=== PATIENT | female | born 1970 | race Caucasian/White ===

== ENCOUNTER 2016-09-09 01:55 | Emergency (ER) | payer BC ==
[2016-09-09 02:15] VITALS: BP 121/94
[2016-09-09] MEDS ORDERED: oxyCODONE TAB* 5 MG TAB PO ONE ×2 (02:28→02:39)
[2016-09-09] MEDS ORDERED: Ibuprofen TAB* 600 MG PO ONE (02:29)
--- NOTE | 2016-09-09 02:38 | ED ---
Katherine Lackey Claudia, scribed for Mick Nava MD on 09/09/16 at 0217 . Upper Extremity Pain - HPI Summary HPI Summary: 45 year old female presents to the ED with burning/pain to her right hand. Pt notes this is the 4th incident since April. She notes that her RA Rx is not helping alleviate her pain. Pt notes that it is causing her limited mobility. Pt states no alleviating or aggravating pain. Pt notes that the pain originates in the right shoulder and moves down her arm into her hand. Pt notes that it can usually get intense on the left side as well but not at the same time. 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 8pm she took hydrocodone and too ibuprofen and tried to g to sleep around 9 and she got up since. Pt notes this pain feels worse than her usual RA Sx. PMHx of RA - History of Current Complaint Chief Complaint: EDGeneral Stated Complaint: RIGHT HAND PAIN FROM ELBOW TO FINGERS Time Seen by Provider: 09/09/16 02:10 Hx Obtained From: Patient Hx Last Menstrual Period: mar 2014 Onset/Duration: Still Present, Worse Since - tonight Timing: Constant Character: Burning Aggravating Factor(s): Nothing Alleviating Factor(s): Nothing - Allergies/Home Medications Allergies/Adverse Reactions: Allergies Allergy/AdvReac Type Severity Reaction Status Date / Time Carbamazepine [From Tegretol] Allergy Severe See Comment Verified 05/10/14 10:10 Sucralfate [From Carafate] AdvReac Unknown Verified 09/09/16 02:07 Reaction Details PMH/Surg Hx/FS Hx/Imm Hx Previously Healthy: Yes Endocrine/Hematology History: Denies: Hx Diabetes Cardiovascular History: Reports: Hx Angina, Hx Hypercholesterolemia, Other Cardiovascular Problems/Disorders - heart murmur during Denies: Hx Coronary Artery Disease, Hx Hypertension, Hx Myocardial Infarction , Hx Valvular Heart Disease Respiratory History: Denies: Hx Asthma, Hx Chronic Obstructive Pulmonary Disease (COPD) GI History: Reports: Hx Gastroesophageal Reflux Disease, Hx Irritable Bowel Musculoskeletal History: Reports: Hx Rheumatoid Arthritis, Hx Gout Neurological History: Reports: Other Neuro Impairments/Disorders - neurogenic bladder, RA - Surgical History Surgery Procedure, Year, and Place: uterine dilitation; wisdom teeth Infectious Disease History: No Infectious Disease History: 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 Denies: Hx Clostridium Difficile, Hx Human Immunodeficiency Virus (HIV), Hx of Known/Suspected MRSA, Hx Shingles, Hx Tuberculosis, Hx Known/Suspected VRE, Hx Known/Suspected VRSA, History Other Infectious Disease, Traveled Outside the [place] in Last 30 Days - Family History Known Family History: Positive: Cardiac Disease - CAD - Social History Occupation: Employed Full-time Lives: With Family Alcohol Use: Occasionally Alcohol Amount: weekly during holidays Substance Use Type: Reports: None Smoking Status (MU): Light Every Day Tobacco Smoker Amount Used/How Often: 5-6 daily Review of Systems Constitutional: Negative Negative: Fever Eyes: Negative ENT: Negative Cardiovascular: Negative Respiratory: Negative Gastrointestinal: Negative Genitourinary: Negative Positive: Other - right forearm pain into her right hand- burning sensation Skin: Negative Neurological: Negative Psychological: Normal All Other Systems Reviewed And Are Negative: Yes Physical Exam Triage Information Reviewed: Yes Vital Signs On Initial Exam: Initial Vitals Temp Pulse Resp BP Pulse Ox 97.1 F 78 18 121/94 98 09/09/16 02:03 09/09/16 02:03 09/09/16 02:03 09/09/16 02:03 09/09/16 02:03 Vital Signs Reviewed: Yes Appearance: Positive: Well-Appearing. Negative: No Pain Distress - mild pain distress Skin: Positive: Warm, Skin Color Reflects Adequate Perfusion, Dry Head/Face: Positive: Normal Head/Face Inspection Eyes: Positive: EOMI, SURJIT ENT: Positive: Normal ENT inspection Neck: Positive: Supple, Nontender Respiratory/Lung Sounds: Positive: Clear to Auscultation, Breath Sounds Present Cardiovascular: Positive: RRR Abdomen Description: Positive: Nontender, Soft Musculoskeletal: Positive: Normal, Strength/ROM Intact, Other - positive Tinels good cap refill, some swelling over the dorsum of the wrist but no forearm swelling- no pain tenderness with palpation of the upper arm. pain with wrist flexion and extention and phalynx flexion and extention. good ROM of the arm Neurological: Positive: Normal, Sensory/Motor Intact, Alert, Oriented to Person Place, Time Psychiatric: Positive: Normal, Affect/Mood Appropriate Diagnostics - Vital Signs Vital Signs Temp Pulse Resp BP Pulse Ox 09/09/16 02:03 97.1 F 78 18 121/94 98 - Laboratory Lab Statement: Any lab studies that have been ordered have been reviewed, and results considered in the medical decision making process. Course/Dx - Course Course Of Treatment: NO CRITICAL CARE TIME Assessment/Plan: RT COCK UP SLPINT, CONTINUE NSAIDS, RX OXYCODONE, F/U PMD, DISCHARGE HOME STABLE. - Diagnoses Provider Diagnoses: Carpal tunnel syndrome Discharge - Discharge Plan Condition: Stable Disposition: HOME Prescriptions: oxyCODONE TAB* [Roxycodone TAB 5 mg*] 5 mg PO Q4H PRN #20 tab MDD 6 PRN Reason: Pain Referrals: Polo Bhatt MD [Primary Care Provider] - Additional Instructions: FOLLOW UP WITH YOUR DOCTOR FOR YOU CARPAL TUNNEL SYNDROME. RETURN TO THE EMERGENCY DEPARTMENT FOR ANY WORSENING OF YOUR CONDITION OR QUESTIONS OR CONCERNS. The documentation as recorded by the Katherine ring Claudia accurately reflects the service I personally performed and the decisions made by me, Mick Nava MD.
== END 2016-09-09 03:04 | disposition home or self-care (01) ==
LOC: ED 01:55
DX: G56.00 Carpal tunnel syndrome, unspecified upper limb (principal); M79.631 Pain in right forearm; F17.210 Nicotine dependence, cigarettes, uncomplicated
CPT/HCPCS: 99282; A9270-GY

== ENCOUNTER 2016-11-26 06:43 | Emergency (ER) | payer BC ==
[2016-11-26] MEDS ORDERED: NS 0.9% 1000 ML* 1,000 ML IV ONE (07:39)
[2016-11-26] MEDS ORDERED: Ketorolac INJ* 30 MG/ML 1 ML VIAL IV PUSH ONE (07:40)
[2016-11-26 08:28] LABS: Hematocrit 41 % (35-47); Hemoglobin 13.8 g/dl (12.0-16.0); Mean Corpuscular HGB Conc 34 g/dl (31-36); Mean Corpuscular Hemoglobin 29 pg (27-31); Mean Corpuscular Volume 85 fL (80-97); Mean Platelet Volume 7 um3 (7.4-10.4); Red Blood Count 4.79 10^6/ul (4.0-5.4); Red Cell Distribution Width 15 % (10.5-15); White Blood Count 9.7 10^3/ul (3.5-10.8)
[2016-11-26 08:42] LABS: Albumin 3.9 g/dL (3.2-5.2); BUN/Creatinine Ratio 16.9 (8-20); C Reactive Protein 13.11 mg/L (< 5.00); Calcium 9.3 mg/dL (8.6-10.3); EGFR African American 102.9 (>60); Globulin 2.9 g/dL (2-4); Potassium 3.8 mmol/L (3.5-5.0); Total Bilirubin 0.3 mg/dL (0.2-1.0); Total Protein 6.8 g/dL (6.4-8.9)
[2016-11-26 08:50] LABS: Mono Internal Control QC Line Present
[2016-11-26 08:51] LABS: Manual Entry Verification ABI0007
[2016-11-26 09:45] VITALS: BP 104/55
--- NOTE | 2016-11-26 10:10 | RAD ---
INDICATION: Body aches. COMPARISON: Comparison is made with a prior chest x-ray study from July 11, 2015. TECHNIQUE: Dual-energy PA and lateral views of the chest were obtained. FINDINGS: The heart is within normal limits in size. Mediastinal and hilar contours appear within normal limits. The lungs are clear. No pleural effusion is present. IMPRESSION: NO EVIDENCE FOR ACTIVE CARDIOPULMONARY DISEASE.
--- NOTE | 2016-11-28 19:56 | ED ---
Mara Lackey Alfonso, scribed for Dylan Alexander MD on 11/26/16 at 0745 . Complex/Multi-Sys Presentation - HPI Summary HPI Summary: This patient is a 46 year old F [place] [facility] [place] a male with a chief complaint of body aches since yesterday. Pt reports the pain is not in the joints it is the muscles. The CC is described as throbbing pain. Pt rates the pain 9/10 in severity. Symptoms aggravated by movement and alleviated by nothing. Pt reports nausea, throat pain, and lymph node swelling. Pt denies fever, cough, CP, and SOB. PMHx of rheumatoid arthritis and gout. - History Of Current Complaint Chief Complaint: EDThroatPain Time Seen by Provider: 11/26/16 07:21 Hx Obtained From: Patient Onset/Duration: Sudden Onset, Lasting Days - Yesterday, Still Present Timing: Constant Severity Currently: Severe Severity Initially: Severe Character: Throbbing Aggravating Factor(s): Movement. Alleviating Factor(s): Nothing. Associated Signs And Symptoms: Positive: Nausea, Other - Positive throat pain, and lymph node swelling. Negative: SOB, Cough, Chest Pain, Fever - Allergies/Home Medications Allergies/Adverse Reactions: Allergies Allergy/AdvReac Type Severity Reaction Status Date / Time Carbamazepine [From Tegretol] Allergy Severe See Comment Verified 05/10/14 10:10 Sucralfate [From Carafate] AdvReac Unknown Verified 09/09/16 02:07 Reaction Details PMH/Surg Hx/FS Hx/Imm Hx Endocrine/Hematology History: Denies: Hx Diabetes Cardiovascular History: Reports: Hx Angina, Hx Hypercholesterolemia, Other Cardiovascular Problems/Disorders - heart murmur during Denies: Hx Coronary Artery Disease, Hx Hypertension, Hx Myocardial Infarction , Hx Valvular Heart Disease Respiratory History: Denies: Hx Asthma, Hx Chronic Obstructive Pulmonary Disease (COPD) GI History: Reports: Hx Gastroesophageal Reflux Disease, Hx Irritable Bowel Musculoskeletal History: Reports: Hx Rheumatoid Arthritis, Hx Gout Neurological History: Reports: Other Neuro Impairments/Disorders - neurogenic bladder, RA - Surgical History Surgery Procedure, Year, and Place: uterine dilitation; wisdom teeth Infectious Disease History: No Infectious Disease History: 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 Denies: Hx Clostridium Difficile, Hx Human Immunodeficiency Virus (HIV), Hx of Known/Suspected MRSA, Hx Shingles, Hx Tuberculosis, Hx Known/Suspected VRE, Hx Known/Suspected VRSA, History Other Infectious Disease, Traveled Outside the [place] in Last 30 Days - Family History Known Family History: Positive: Cardiac Disease - CAD - Social History Alcohol Use: Occasionally Alcohol Amount: weekly during holidays Substance Use Type: Reports: None Smoking Status (MU): Heavy Every Day Tobacco Smoker Amount Used/How Often: 5-6 daily Review of Systems Negative: Fever Positive: Other - Positive throat pain and lymph node swelling. Negative: Chest Pain Negative: Shortness Of Breath, Cough Positive: Nausea Positive: Myalgia - Positive body aches. All Other Systems Reviewed And Are Negative: Yes Physical Exam - Summary Physical Exam Summary: VITAL SIGNS: Reviewed. GENERAL: Patient is a well-developed and nourished female who is lying comfortable in the stretcher. Patient is not in any acute respiratory distress. HEAD AND FACE: No signs of trauma. No ecchymosis, hematomas or skull depressions. No sinus tenderness. EYES: PERRLA, EOMI x 2, No injected conjunctiva, no nystagmus. EARS: Hearing grossly intact. Ear canals and tympanic membranes are within normal limits. MOUTH: Oropharynx within normal limits. NECK: Supple, trachea is midline, no adenopathy, no JVD, no carotid bruit, no c- spine tenderness, neck with full ROM. CHEST: Symmetric, no tenderness at palpation LUNGS: Clear to auscultation bilaterally. No wheezing or crackles. CVS: Regular rate and rhythm, S1 and S2 present, no murmurs or gallops appreciated. ABDOMEN: Soft, non-tender. No signs of distention. No rebound no guarding, and no masses palpated. Bowel sounds are normal. EXTREMITIES: FROM in all major joints, no edema, no cyanosis or clubbing. NEURO: Alert and oriented x 3. No acute neurological deficits. Speech is normal and follows commands. SKIN: Dry and warm Triage Information Reviewed: Yes Vital Signs On Initial Exam: Initial Vitals Temp Pulse Resp BP Pulse Ox 97.2 F 87 18 104/29 96 11/26/16 06:46 11/26/16 06:46 11/26/16 06:46 11/26/16 06:46 11/26/16 06:46 Vital Signs Reviewed: Yes Diagnostics - Vital Signs Vital Signs Temp Pulse Resp BP Pulse Ox 11/26/16 06:58 97.7 F 95 20 105/49 96 11/26/16 06:46 97.2 F 87 18 104/29 96 - Laboratory Lab Results: Lab Results 11/26/16 11/26/16 11/26/16 Range/Units 07:37 08:11 08:11 WBC 9.7 (3.5-10.8) 10^3/ul RBC 4.79 (4.0-5.4) 10^6/ul Hgb 13.8 (12.0-16.0) g/dl Hct 41 (35-47) % MCV 85 (80-97) fL MCH 29 (27-31) pg MCHC 34 (31-36) g/dl RDW 15 (10.5-15) % Plt Count 223 (150-450) 10^3/ul MPV 7 L (7.4-10.4) um3 Neut % (Auto) 66.7 (38-83) % Lymph % (Auto) 22.2 L (25-47) % [place] % (Auto) 7.3 (1-9) % Eos % (Auto) 3.0 (0-6) % Baso % (Auto) 0.8 (0-2) % Absolute Neuts (auto) 6.5 (1.5-7.7) 10^3/ul Absolute Lymphs (auto) 2.2 (1.0-4.8) 10^3/ul Absolute Monos (auto) 0.7 (0-0.8) 10^3/ul Absolute Eos (auto) 0.3 (0-0.6) 10^3/ul Absolute Basos (auto) 0.1 (0-0.2) 10^3/ul Absolute Nucleated RBC 0 10^3/ul Nucleated RBC % 0 Sodium (133-145) mmol/L Potassium (3.5-5.0) mmol/L Chloride (101-111) mmol/L Carbon Dioxide (22-32) mmol/L Anion Gap (2-11) mmol/L BUN (6-24) mg/dL Creatinine (0.51-0.95) mg/dL Est GFR ( Amer) (>60) Est GFR (Non-Af Amer) (>60) BUN/Creatinine Ratio (8-20) Glucose (70-100) mg/dL Lactic Acid 1.3 (0.5-2.0) mmol/L Calcium (8.6-10.3) mg/dL Total Bilirubin (0.2-1.0) mg/dL AST (13-39) U/L ALT (7-52) U/L Alkaline Phosphatase (34-104) U/L C-Reactive Protein (< 5.00) mg/L Total Protein (6.4-8.9) g/dL Albumin (3.2-5.2) g/dL Globulin (2-4) g/dL Albumin/Globulin Ratio (1-3) Monoscreen Negative (Negative) Group A Strep Rapid Negative (Negative) 11/26/16 Range/Units 08:11 WBC (3.5-10.8) 10^3/ul RBC (4.0-5.4) 10^6/ul Hgb (12.0-16.0) g/dl Hct (35-47) % MCV (80-97) fL MCH (27-31) pg MCHC (31-36) g/dl RDW (10.5-15) % Plt Count (150-450) 10^3/ul MPV (7.4-10.4) um3 Neut % (Auto) (38-83) % Lymph % (Auto) (25-47) % [place] % (Auto) (1-9) % Eos % (Auto) (0-6) % Baso % (Auto) (0-2) % Absolute Neuts (auto) (1.5-7.7) 10^3/ul Absolute Lymphs (auto) (1.0-4.8) 10^3/ul Absolute Monos (auto) (0-0.8) 10^3/ul Absolute Eos (auto) (0-0.6) 10^3/ul Absolute Basos (auto) (0-0.2) 10^3/ul Absolute Nucleated RBC 10^3/ul Nucleated RBC % Sodium 137 (133-145) mmol/L Potassium 3.8 (3.5-5.0) mmol/L Chloride 107 (101-111) mmol/L Carbon Dioxide 25 (22-32) mmol/L Anion Gap 5 (2-11) mmol/L BUN 13 (6-24) mg/dL Creatinine 0.77 (0.51-0.95) mg/dL Est GFR ( Amer) 102.9 (>60) Est GFR (Non-Af Amer) 80.0 (>60) BUN/Creatinine Ratio 16.9 (8-20) Glucose 98 (70-100) mg/dL Lactic Acid (0.5-2.0) mmol/L Calcium 9.3 (8.6-10.3) mg/dL Total Bilirubin 0.30 (0.2-1.0) mg/dL AST 16 (13-39) U/L ALT 16 (7-52) U/L Alkaline Phosphatase 79 (34-104) U/L C-Reactive Protein 13.11 H (< 5.00) mg/L Total Protein 6.8 (6.4-8.9) g/dL Albumin 3.9 (3.2-5.2) g/dL Globulin 2.9 (2-4) g/dL Albumin/Globulin Ratio 1.3 (1-3) Monoscreen (Negative) Group A Strep Rapid (Negative) Result Diagrams: 11/26/16 08:11 11/26/16 08:11 Lab Statement: Any lab studies that have been ordered have been reviewed, and results considered in the medical decision making process. - Radiology CXR Radiology Interpretation Completed By: Radiologist - NO EVIDENCE FOR ACTIVE CARDIOPULMONARY DISEASE. Re-Evaluation - Re-Evaluation First Eval Re-Evaluation Time: 09:56 Change: Improved Comment: Pt reports feeling better. Complex Multi-Symp Course/Dx Assessment/Plan: This patient is a 46 year old F [place] [facility] [place] a male with a chief complaint of body aches since yesterday. Pt reports the pain is not in the joints it is the muscles. The CC is described as throbbing pain. Pt rates the pain 9/10 in severity. Symptoms aggravated by movement and alleviated by nothing. Pt reports nausea, throat pain, and lymph node swelling. Pt denies fever, cough, CP, and SOB. PMHx of rheumatoid arthritis and gout. In the ED course an IV access was obtained. Patient was placed in a personnel monitor. Patient was started with IV fluids. She was started in toradol for pain. Labs without any significant abnormality. Strep test negative. CXR impression: No acute pathology. After medications her symptoms significantly improved. She has no other complaints. She reported she has rash 1 week ago in the leg but she did not noticed any ticks. She declined doxycycline for treatment of lyme. I discussed all the findings and test results with the patient. Patient was instructed to return to the emergency room immediately if any of the symptoms return or worsens. Plan of care was discussed with the patient and understands and agrees. All questions were answered at patient satisfaction. There were no further complaints or concerns. Lung exam before discharge: CTA B/L. Good air exchange. No wheezing or crackles heard. CVS: S1 and S2 present. No murmurs appreciated. Patient is alert and oriented x 3. Patient is hemodynamically stable. Patient will be discharged home with follow up PCP in the next 2-3 days - Diagnoses Differential Diagnoses/HQI/PQRI: Other - pharyngitis, myalgias Provider Diagnoses: Myalgia Discharge - Discharge Plan Condition: Stable Disposition: HOME Patient Education Materials: Musculoskeletal Pain (ED) Referrals: Polo Bhatt MD [Primary Care Provider] - 3 Days The documentation as recorded by the Mara ring Alfonso accurately reflects the service I personally performed and the decisions made by me, Dylan Alexander MD.
== END 2016-11-26 10:10 | disposition home or self-care (01) ==
LOC: ED 06:43
DX: M79.1 Myalgia (principal); R11.0 Nausea; R07.0 Pain in throat; R59.1 Generalized enlarged lymph nodes; E78.00 Pure hypercholesterolemia, unspecified; M06.9 Rheumatoid arthritis, unspecified; F17.210 Nicotine dependence, cigarettes, uncomplicated
CPT/HCPCS: 36415; 71020; 80053; 83605; 85025; 86140; 86308; 87651; 96361; 96374; 99282; J1885

== ENCOUNTER 2017-06-23 18:23 | Emergency (ER) | payer SELFPAY ==
[2017-06-23 20:09] VITALS: BP 123/59
--- NOTE | 2017-06-23 21:12 | ED ---
Ruth Lackey Thomas, scribed for Tal Ponce MD on 06/23/17 at 2002 . Headache - HPI Summary HPI Summary: The patient is a 46 year old female presenting with intermittent headache since five days ago. The patient has been having soot in her home and heating issues since four days ago, and alarms have been periodically going off as well. The furnace repairman told the patient that there was carbon monoxide in her home. In the ED, the patient reports she is nauseous. - History Of Current Complaint Chief Complaint: EDHeadache Stated Complaint: POSSIBLE CO POISONING Time Seen by Provider: 06/23/17 19:32 Hx Obtained From: Patient Hx Last Menstrual Period: mar 2014 Onset/Duration: Started days ago - 5, Still Present Timing: Intermittent, Lasting: Allevating Factors: Nothing Associated Signs And Symptoms: Nausea - Allergies/Home Medications Allergies/Adverse Reactions: Allergies Allergy/AdvReac Type Severity Reaction Status Date / Time carbamazepine [From Tegretol] Allergy See Comment Verified 06/23/17 18:44 sucralfate [From Carafate] Allergy Unknown Verified 06/23/17 18:43 Reaction Details PMH/Surg Hx/FS Hx/Imm Hx Endocrine/Hematology History: Denies: Hx Diabetes Cardiovascular History: Reports: Hx Angina, Hx Hypercholesterolemia, Other Cardiovascular Problems/Disorders - heart murmur during Denies: Hx Coronary Artery Disease, Hx Hypertension, Hx Myocardial Infarction , Hx Valvular Heart Disease Respiratory History: Denies: Hx Asthma, Hx Chronic Obstructive Pulmonary Disease (COPD) GI History: Reports: Hx Gastroesophageal Reflux Disease, Hx Irritable Bowel Musculoskeletal History: Reports: Hx Rheumatoid Arthritis, Hx Gout Neurological History: Reports: Other Neuro Impairments/Disorders - neurogenic bladder, RA - Surgical History Surgery Procedure, Year, and Place: uterine dilitation; wisdom teeth Infectious Disease History: No Infectious Disease History: 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 Denies: Hx Clostridium Difficile, Hx Human Immunodeficiency Virus (HIV), Hx of Known/Suspected MRSA, Hx Shingles, Hx Tuberculosis, Hx Known/Suspected VRE, Hx Known/Suspected VRSA, History Other Infectious Disease, Traveled Outside the [place] in Last 30 Days - Family History Known Family History: Positive: Cardiac Disease - CAD - Social History Alcohol Use: Occasionally Alcohol Amount: weekly during holidays Substance Use Type: Reports: None Smoking Status (MU): Heavy Every Day Tobacco Smoker Amount Used/How Often: 5-6 daily Review of Systems Negative: Fever Positive: Nausea Positive: Headache All Other Systems Reviewed And Are Negative: Yes Physical Exam - Summary Physical Exam Summary: VITAL SIGNS: Reviewed. GENERAL: Patient is a well-developed and nourished FEMALE who is lying comfortable in the stretcher. Patient is not in any acute respiratory distress. HEAD AND FACE: No signs of trauma. No ecchymosis, hematomas or skull depressions. No sinus tenderness. EYES: PERRLA, EOMI x 2, No injected conjunctiva, no nystagmus. EARS: Hearing grossly intact. Ear canals and tympanic membranes are within normal limits. MOUTH: Oropharynx within normal limits. NECK: Supple, trachea is midline, no adenopathy, no JVD, no carotid bruit, no c- spine tenderness, neck with full ROM. CHEST: Symmetric, no tenderness at palpation LUNGS: Clear to auscultation bilaterally. No wheezing or crackles. CVS: Regular rate and rhythm, S1 and S2 present, no murmurs or gallops appreciated. ABDOMEN: Soft, non-tender. No signs of distention. No rebound no guarding, and no masses palpated. Bowel sounds are normal. EXTREMITIES: FROM in all major joints, no edema, no cyanosis or clubbing. NEURO: Alert and oriented x 3. No acute neurological deficits. Speech is normal and follows commands. SKIN: Dry and warm Triage Information Reviewed: Yes Vital Signs On Initial Exam: Initial Vitals Temp Pulse Resp BP Pulse Ox 97.6 F 85 16 129/72 98 06/23/17 18:40 06/23/17 18:40 06/23/17 18:40 06/23/17 18:40 06/23/17 18:40 Vital Signs Reviewed: Yes Diagnostics - Vital Signs Vital Signs Temp Pulse Resp BP Pulse Ox 06/23/17 18:40 97.6 F 85 16 129/72 98 - Laboratory Lab Statement: Any lab studies that have been ordered have been reviewed, and results considered in the medical decision making process. Headache Course/Dx - Course Assessment/Plan: The patient is a 46 year old female presenting with intermittent headache since five days ago. There are concerns for carbon monoxide. The patient is a smoker, so that is why her carbon monoxide screen is 5.5. Her screen is less than 10, which is normal for smokers. The patient will be discharged home with primary care follow up. - Diagnoses Provider Diagnoses: Headache Discharge - Discharge Plan Condition: Stable Disposition: HOME Patient Education Materials: General Headache (ED) Referrals: Polo Bhatt MD [Primary Care Provider] - 3 Days Additional Instructions: Follow up with your primary care physician in three days. Return to the emergency department for any new or worsening symptoms. The documentation as recorded by the Ruth ring Thomas accurately reflects the service I personally performed and the decisions made by , Tal Ponce MD.
== END 2017-06-23 21:18 | disposition home or self-care (01) ==
LOC: ED 18:23
DX: R51 Headache (principal); F17.200 Nicotine dependence, unspecified, uncomplicated; Z77.29 Contact with and (suspected) exposure to other hazardous substances; Z88.8 Allergy status to other drugs, medicaments and biological substances
CPT/HCPCS: 36415; 82375; 99282